=== PATIENT | female | born 1955 | race Caucasian/White ===

== ENCOUNTER → 2020-01-16 12:46 | Outpatient (CLI) | payer MEDICARE ==
--- NOTE | ~2020-01-16 | EC ---
PATIENT:JOSE YEBOAH DATE OF SERVICE: 01/16/20 SEX: F MEDICAL RECORD: [id number] DATE OF : [birth year] LOCATION:[facility] AGE OF PATIENT: 64 ADMISSION DATE: 01/16/20 REFERRING PHYSICIAN: INTERPRETING PHYSICIAN: GAVIN BAE MD ECHOCARDIOGRAM REPORT ECHO CHARGES 4 ECHO COMPLETE Date: 01/16/20 CLINICAL DIAGNOSIS: HTN/PALPITATIONS/DYSPNEA ECHOCARDIOGRAPHIC MEASUREMENTS (adult normal given) AC root (d.<3.7cm) 3.6 cm LV Septum d (<1.2 cm> 1.0 cm Valve Excursion 1.4 cm LV Septum (systole) 1.5 cm Left Atria (s.<4.0cm> 3.6 cm LVPW d(<1.2cm) 1.3 cm RV (d.<2.3cm) 3.1 cm LVPW (sytole) 1.5 cm LV diastole(<5.6CM) 4.9 cm MV E-F(>70mm/sec) cm LV systole 2.9 cm LVOT Diameter 2.1 cm MV exc.(>10mm) 1.0 cm Est.ejection fraction (50-75%) % DOPPLER: LVIT cm/sec A 72.0 cm/sec E 42.0 cm/sec LA cm/sec RVSP 23 mmHg LVOT 110 cm/sec AOP1/2T m/s Asc. Ao 146 cm/sec RVOT 110 cm/sec RA cm/sec PA 124 cm/sec AV Gradient Peak 8.54 mmHg AV Mean 4.57 mmHg AV Area 2.6 cm MV Gradient Peak 2.75 mmHg MV Mean 1.15 mmHg MV Area cm COMMENTS: Team Assembler: 2 CESARIO SMITH Wood Casket Assembler: 3 Dr. Burnett TAPE# PACS Pericardial Effusion N DATE OF SERVICE: Adequate 2D, color flow imaging, spectral Doppler, and M-Mode. No LVH. LV internal dimensions are normal. Wall motion is normal. EF is greater than or equal to 55%. Aortic valve is tricuspid. No evidence of stenosis by Doppler interrogation. Left atrium is normal. Mitral valve shows no prolapse. Trace MR. Right-sided chambers are grossly normal. Trace TR. TRANSINT:[id number] Voice Confirmation ID: [id number] DOCUMENT ID: [id number] ECHOCARDIOGRAM REPORT [id number] JOSE YEBOAH GREGORY A MD CC: [id number] DICTATION DATE: 01/17/20 1540 CLINIC LICENSED PRACTICAL NURSE: 01/17/20 1845 DEP CLI 01/16/20 [place] [id number] [place] [id number]
== END | disposition home or self-care (01) ==
LOC: D.HCCECHO 12:46
PROVIDERS: ATTEND Internal Medicine Interventional Cardiology
DX: I10 Essential (primary) hypertension (principal)